=== PATIENT | female | born 1995 | race African-American/Black ===

== ENCOUNTER 2021-09-20 20:44 | Emergency (ER) | payer SELFPAY ==
[~2021-09-20] VITALS: Ht 160 cm; Wt 50.0 kg
[2021-09-20 22:58] LABS: BASOPHILS % 0.7 % (0.0-2.0); EOSINOPHILS % 0.2 % (0.0-5.0); HEMATOCRIT. 31.7 % (36.0-48.0); HEMOGLOBIN. 10.4 g/dL (12.0-16.0); LYMPHOCYTES % 39.9 % (20.0-50.0); MEAN CORPUSCULAR HEMOGLOBIN 28.4 pg (28.0-32.0); MEAN CORPUSCULAR VOLUME 86.3 fL (81.0-99.0); MEAN PLATELET VOLUME 7.1 fl (7.4-10.4); NEUTROPHILS % 52.2 % (40.0-76.0); PLATELET 259 x1000/uL (130-400); RED BLOOD CELL COUNT 3.67 mill/uL (4.2-5.4); RED CELL DISTRIBUTION WIDTH 13.2 % (11.6-14.6)
[2021-09-20 23:03] LABS: CHLORIDE 111 mEq/L (98-107)
[2021-09-20 23:10] LABS: ETHANOL BLOOD 21 mg/dL
[2021-09-20 23:11] LABS: HCG SCREEN NEGATIVE
[2021-09-21 00:04] LABS: *AMPHETAMINES SCREEN URINE NEGATIVE (NEGATIVE); *BARBITURATES SCREEN URINE NEGATIVE (NEGATIVE); *COCAINE SCREEN URINE NEGATIVE (NEGATIVE); METHADONE URINE SCREEN NEGATIVE (NEGATIVE); OPIATES URINE SCREEN NEGATIVE (NEGATIVE); PHENCYCLIDINE URINE SCREEN NEGATIVE (NEGATIVE)
[2021-09-21 00:05] LABS: *BENZODIAZEPINES SCREEN URINE NEGATIVE (NEGATIVE)
[2021-09-21 00:06] LABS: CANNABINOID URINE SCREEN PRESUMTIVE POSITIVE (NEGATIVE)
[2021-09-21] MEDS: ONDANSETRON HCL 4MG/2ML INJ IV ONE (00:32)
[2021-09-21 03:53] VITALS: BP 100/85
== END 2021-09-21 03:55 | disposition home or self-care (01) ==
LOC: ER 20:44
DX: G93.40 Encephalopathy, unspecified (principal); T65.91XA Toxic effect of unspecified substance, accidental (unintentional), initial encounter; I49.9 Cardiac arrhythmia, unspecified; Y92.9 Unspecified place or not applicable
CPT/HCPCS: 36415; 71045; 80053; 80305; 80307; 80320; 80329; 81025; 82962; 84703; 85025; 93005; 96374; 99285; J2405; G0480